=== PATIENT | female | born 1970 | race Caucasian/White ===

== ENCOUNTER 2016-11-05 20:19 | Emergency (ER) | payer SELFPAY ==
[~2016-11-05 20:19] MED LIST: ACETAMINOPHEN; ALPRAZOLAM; ALPRAZOLAM PO; HYDROCODONE; LORTAB 5/500 TA1 TA1 PO; LORTAB 7.5-5001 TAB PO; LOTRIMIN 1% CR30 GM EXT; MOBIC PO; NORCO 5/325 TAB1 TAB PO; PHENERGAN; PROTONIX; PROTONIX PO; SEROQUEL PO; TOPAMAX PO; VIT B-12; ZITHROMAX PO; ZOLOFT; ZOLOFT PO; ZYRTEC1 MG/1 ML PO
== END 2016-11-05 22:10 | disposition home or self-care (01) ==
LOC: CED 20:19 → CFTX 20:19
DX: S61.012A Laceration without foreign body of left thumb without damage to nail, initial encounter (principal); F17.210 Nicotine dependence, cigarettes, uncomplicated; W54.0XXA Bitten by dog, initial encounter; Z85.828 Personal history of other malignant neoplasm of skin; Y92.009 Unspecified place in unspecified non-institutional (private) residence as the place of occurrence of the external cause
CPT/HCPCS: 12001; 99283